=== PATIENT | female | born 1990 | race Caucasian/White ===

== ENCOUNTER 2023-01-14 12:21 | Emergency (ER) | payer MEDICAID, SELFPAY ==
--- NOTE | 2023-01-14 12:24 | ED.CHESTPAI1 ---
HPI - Chest Pain General Chief Complaint: Chest Pain Stated Complaint: RAPID HEART RATE Time Seen by Provider: 01/14/23 12:24 History of Present Illness HPI narrative: pt presents to emergency department complaining of palpitations. Patient states she was driving and started feeling her heart race. She became anxious because she's had panic attacks before started to feel like a panic attack however she started feeling numbness to both of her hands and feet. Subsequently everything intensified to the point where she was having carpopedal spasms and she was not able to drive. Lasted approximately 10 minutes. She denies any chest pain. She denies any shortness of breath. She states she is feeling fine now. She has a history of bipolar disease and does not take any medications. Patient denies any fever, chills, or cough. She denies any runny nose, sore throat. She denies any nausea, vomiting, diarrhea, constipation, or abdominal pain. She denies any trauma. Related Data Previous Rx's Medication Instructions Recorded lorazepam 1 mg tablet (Ativan) 0.5 mg PO Q8H PRN anxiety 5 days 01/14/23 #7 tabs Allergies Allergy/AdvReac Type Severity Reaction Status Date / Time acetaminophen [From Vicodin] AdvReac Vomiting Verified 01/14/23 12:35 hydrocodone [From Vicodin] AdvReac Vomiting Verified 01/14/23 12:35 Review of Systems ROS Status of ROS 10 or more systems reviewed and unremarkable except as noted in history and below [facility] Social History Smoking status: Current every day smoker Exam Narrative Exam Narrative: Nurses notes and vital signs reviewed and patient is not hypoxic. General: Nontoxic, crying,Well-appearing and in no apparent distress. Skin: Warm, dry, no pallor noted. No Rash Head: Normocephalic, atraumatic. Neck: Supple, non-tender. Eye: Pupils are equal, round and EOMI. No scleral icterus. Ears, Nose, Mouth, and Throat: TM clear, no posterior oropharynx erythema or nasal mucosal hypertrophy, uvula is mid-line Oral mucosa is moist Cardiovascular: Regular Rate and Rhythm without murmur, gallop or rub. Respiratory: No accessory muscle use or respiratory distress. Lungs are clear to auscultation, no wheezing, rales or rhonchi Chest Wall: no tenderness Back: No midline thoracic or lumbar vertebral tenderness. No CVA tenderness Musculoskeletal: normal ROM, no calf or popliteal tenderness, no lower extremity edema/swelling GI: Abdomen is soft, non-distended. Normal bowel sounds. No masses appreciated. No tenderness to palpation. No rebound, guarding, or rigidity noted. Neurological: A&O x4. No cranial nerve dysfunction observed. No truncal ataxia. Moves all extremities. Sensation intact. Psychiatric: Cooperative and interactive. Anxious, crying Constitutional Vital Signs - 24 hr 01/14/23 12:30 01/14/23 13:07 Temperature 98.1 F Pulse Rate [Monitor] 99 H 87 Respiratory Rate 22 18 Blood Pressure [Right Arm] 91/67 119/69 Pulse Oximetry 98 Oxygen Delivery Method Room Air Course Vital Signs Vital signs: Vital Signs Temperature 98.1 F 01/14/23 12:30 Pulse Rate 99 H 01/14/23 12:30 Respiratory Rate 22 01/14/23 12:30 Blood Pressure 91/67 01/14/23 12:30 Pulse Oximetry 98 01/14/23 12:30 Oxygen Delivery Method Room Air 01/14/23 12:30 Temperature 98.1 F 01/14/23 12:30 Pulse Rate 87 01/14/23 13:07 Respiratory Rate 18 01/14/23 13:07 Blood Pressure 119/69 01/14/23 13:07 Pulse Oximetry 98 01/14/23 12:30 Oxygen Delivery Method Room Air 01/14/23 12:30 MDM - Chest Pain MDM Narrative Medical decision making narrative: Patient history and physical are consistent with hyperventilation syndrome and carpal pedal spasms. Patient's EKG shows sinus tachycardia [address] depressions in the lateral leads. Patient's troponin is normal. Patient was offered Ativan but she has refused because she has to drive herself home. She states she is feeling better. The patient's had a 2nd troponin and an EKG ordered. The EKG shows a short VA interval with delta wave concerning for WPW. This was discussed with the patient however the patient refused to have any further testing. She refused a chest x-ray and she has refused a 2nd troponin. She wants to leave against medical advice. I advised the patient that she could suffer permanent disability, and . She is aware and she is awake alert oriented ?4 to have any cognitive impairment and is able to make these decisions. pt had a prescription for Ativan 0.5 #10 tablets sent to the pharmacy. She will return if she changes her mind.Patient will follow up with primary doctor and greige mender. Discussed discharge instructions including standard anticipatory guidance and what should prompt a return to the emergency department, including if they get worse are not getting better or develops any new or concerning symptoms. I've given them specific time frame in which to follow-up, and who to follow-up with. The patient demonstrates understanding. Patient is nontoxic and stable for discharge with outpatient follow-up. This note was created with the assistance of a speech recognition program. Although the intention is to generate documents that actually reflects the content of the visit, no guarantees can be provided that every mistake has been identified and corrected by editing. Lab Data Attestation: I reviewed the patient's lab results. Labs: Lab Results 01/14/23 Range/Units 12:49 WBC 6.4 (4.0-11.0) 10^3/uL RBC 4.54 (4.20-5.40) 10^6/uL Hgb 13.9 (12.0-16.0) g/dL Hct 40.5 (36.0-48.0) % MCV 89.2 (81.0-99.0) fL MCH 30.6 (26.7-34.0) pg MCHC 34.3 (29.9-35.2) g/dL RDW 11.6 (11.0-15.0) % Plt Count 234 (150-450) 10^3/uL MPV 9.8 (9.5-13.5) fL Neut % (Auto) 64.9 (43.0-75.0) % Lymph % (Auto) 24.2 (20.5-60.0) % [place] % (Auto) 9.0 (1.7-12.0) % Eos % (Auto) 1.1 (0.9-7.0) % Baso % (Auto) 0.3 (0.2-2.0) % Neut # (Auto) 4.1 (1.4-6.5) 10^3/uL Lymph # (Auto) 1.5 (1.2-3.8) 10^3/uL [place] # (Auto) 0.6 (0.3-0.8) 10^3/uL Eos # (Auto) 0.1 (0.0-0.7) 10^3/uL Baso # (Auto) 0.0 (0.0-0.1) 10^3/uL Abs Immat Gran (auto) 0.03 (0.00-0.03) 10^3/uL Imm/Tot Granulo (auto) 0.5 (0.0-0.5) % Sodium 139 (136-145) mmol/L Potassium 3.4 L (3.5-5.1) mmol/L Chloride 104 (98-107) mmol/L Carbon Dioxide 20.7 L (21.0-32.0) mmol/L Anion Gap 17.7 BUN 8.0 (7.0-18.0) mg/dL Creatinine 0.83 (0.55-1.02) mg/dL Est GFR ( Amer) >60 (>=60) Est GFR (Non-Af Amer) >60 (>=60) BUN/Creatinine Ratio 9.6 Glucose 105 (74-106) mg/dL Calcium 9.0 (8.5-10.1) mg/dL Total Bilirubin 0.3 (0.2-1.0) mg/dL AST 17 (15-37) U/L ALT 25 (14-59) U/L Alkaline Phosphatase 75 (46-116) U/L Troponin I High Sens 11.9 (4.0-51.3) pg/mL Total Protein 7.3 (6.4-8.2) g/dL Albumin 3.8 (3.4-5.0) g/dL Globulin 3.5 g/dL Albumin/Globulin Ratio 1.1 ECG Data Attestation: I personally reviewed and interpreted this ECG as follows: Discharge Plan Discharge Chief Complaint: Chest Pain Clinical Impression: Acute hyperventilation syndrome, Abnormal ECG Patient Disposition: Left Against Medical Advice Time of Disposition Decision: 13:40 Condition: Good Mode of Transportation: Private Vehicle Prescriptions / Home Meds: New lorazepam [Ativan] 1 mg tablet 0.5 mg PO Q8H PRN (Reason: anxiety) 5 Days Qty: 7 0RF Instructions: Hyperventilation (ED) Stand Alone Forms: Portal Instructions Referrals: ESTELLA SHANNON [Primary Care Provider] - 1 week Discharge Date/Time: 01/14/23 13:49
[2023-01-14 12:28] VITALS: PULSE 108
[2023-01-14 12:30] VITALS: BP 91/67; PULSE 99; RESP 22; TEMP 36.7; O2SAT 98; BMI 24.8
--- NOTE | 2023-01-14 12:30 | ECG_ITS ---
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
[2023-01-14 13:02] LABS: Basophils Percent Auto 0.3 % (0.2-2.0); Eosinophils Absolute Auto 0.1 10^3/uL (0.0-0.7); Eosinophils Percent Auto 1.1 % (0.9-7.0); Hematocrit 40.5 % (36.0-48.0); Hemoglobin 13.9 g/dL (12.0-16.0); Immature Granulocytes Abs Auto 0.03 10^3/uL (0.00-0.03); Immature Granulocytes Pct Auto 0.5 % (0.0-0.5); Lymphocytes Absolute Auto 1.5 10^3/uL (1.2-3.8); Lymphocytes Percent Auto 24.2 % (20.5-60.0); Mean Corpuscular HGB Conc 34.3 g/dL (29.9-35.2); Mean Corpuscular Hemoglobin 30.6 pg (26.7-34.0); Mean Corpuscular Volume 89.2 fL (81.0-99.0); Mean Platelet Volume 9.8 fL (9.5-13.5); Monocytes Absolute Auto 0.6 10^3/uL (0.3-0.8); Neutrophils Absolute Auto 4.1 10^3/uL (1.4-6.5); Neutrophils Percent Auto 64.9 % (43.0-75.0); Platelet Count 234 10^3/uL (150-450); Red Blood Count 4.54 10^6/uL (4.20-5.40); Red Cell Distribution Width 11.6 % (11.0-15.0); White Blood Count 6.4 10^3/uL (4.0-11.0)
--- NOTE | 2023-01-14 13:03 | PC.NURSE ---
Patient states pain gone when admitted to ER. Was hyperventilating and very anxious on admission.
[2023-01-14 13:07] VITALS: BP 119/69; PULSE 87; RESP 18
[2023-01-14 13:26] LABS: Alanine Aminotransferase 25 U/L (14-59); Albumin Globulin Ratio 1.1; Albumin Level 3.8 g/dL (3.4-5.0); Alkaline Phosphatase 75 U/L (46-116); Anion Gap 17.7; Aspartate Amino Transferase 17 U/L (15-37); BUN Creatinine Ratio 9.6; Bilirubin Total 0.3 mg/dL (0.2-1.0); Carbon Dioxide 20.7 mmol/L (21.0-32.0); Chloride 104 mmol/L (98-107); Estimated GFR (African America >60 (>=60); Estimated GFR (Non-African Ame >60 (>=60); Globulin 3.5 g/dL; Glucose 105 mg/dL (74-106); Potassium 3.4 mmol/L (3.5-5.1); Sodium 139 mmol/L (136-145); Total Protein 7.3 g/dL (6.4-8.2); Troponin I High Sensitivity 11.9 pg/mL (4.0-51.3)
--- NOTE | 2023-01-14 13:33 | ECG_ITS ---
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1990 Requested By: ESTELLA SHANNON Order Number: [id number] Reading MD: RYAN ARMANDO Measurements Intervals [place] Rate: 85 P: 75 MT: 116 QRS: 59 QRSD: 112 T: 66 QT: 402 QTc: 444 Interpretive Statements 1100 Sinus rhythm 1102 Sinus arrhythmia 2210 Short MT interval 2217 Type-B Camke-Cntwhutgb-Ecdys syndrome Non-Specific T wave inversion in aVL 9150 abnormal ECG Compared to ECG 01/14/2023 12:28:46 Short MT interval now present Ventricular preexcitation now present Sinus tachycardia no longer present ST (T wave) deviation no longer present Electronically Signed On 01-18-2023 7:42:46 EDT by RYAN ARMANDO
== END 2023-01-14 13:49 | disposition left against medical advice (07) ==
PROVIDERS: Emergency Provider Emergency Medicine; PCP Family Medicine
DX: F45.8 Other somatoform disorders (principal); R94.31 Abnormal electrocardiogram [ECG] [EKG]; F17.210 Nicotine dependence, cigarettes, uncomplicated
CPT/HCPCS: 36415; 80053; 84484; 85025; 93005; 99284